=== PATIENT | female | born 1955 | race Asian ===

== ENCOUNTER 2021-10-05 08:43 | Outpatient (CLI) | payer OTHER | END 2021-10-05 19:18 | disposition home or self-care (01) | LOC: MRI 08:43 | PROVIDERS: ATTEND Orthopaedic Surgery | DX: M79.671 Pain in right foot (principal); M19.071 Primary osteoarthritis, right ankle and foot; M76.61 Achilles tendinitis, right leg; Q66.90 Congenital deformity of feet, unspecified, unspecified foot ==